=== PATIENT | male | born 1970 | race African-American/Black ===

== ENCOUNTER 2017-04-20 08:28 | Emergency (ER) | payer BC ==
[2017-04-20 06:39] LABS: BASOPHILS 0.2 %; BASOPHILS ABSOLUTE 0.01 10/3/uL (0.0-0.16); EOSINOPHILS 3.2 %; EOSINOPHILS ABSOLUTE 0.18 10/3/uL (0.0-0.53); HEMATOCRIT 44.5 % (40.0-51.0); HEMOGLOBIN 15.6 g/dL (13.6-17.8); IMMATURE GRANULOCYTES 0.5 %; IMMATURE GRANULOCYTES ABSOLUTE 0.03 10/3/uL (0.0-0.11); LYMPHOCYTES 31.8 %; MANUAL DIFF NO %; MEAN CORPUS HGB CONC 35.1 g/dL (32.0-36.0); MEAN CORPUSCULAR HEMOGLOB 33.3 pg (26.0-34.0); MEAN CORPUSCULAR VOLUME 94.9 fL (80-100); MEAN PLATELET VOLUME 10.2 fL (9.2-13.0); MONOCYTES 9.5 %; MONOCYTES ABSOLUTE 0.54 10/3/uL (0.21-1.20); NEUTROPHILS 54.8 %; PLATELET COUNT 272 10/3/uL (150-400); RED CELL COUNT 4.69 10/6/uL (4.7-6.1); WHITE BLOOD CELLS 5.7 10/3/uL (4.5-10.5)
[2017-04-20 06:50] LABS: CALCIUM, SERUM 8.4 MG/DL (8.5-10.4); CHLORIDE, SERUM 109 MMOL/L (96-112); CO2 (CARBON DIOXIDE) 27 MMOL/L (24-34); SODIUM, SERUM 140 MMOL/L (135-148)
[2017-04-20 06:52] LABS: BUN (BLOOD UREA NITROGEN) 17 MG/DL (6-23); CREATININE 1.78 MG/DL (0.70-1.30); GFR AFRICAN AMERICAN 51 ML/MIN (>=60); GFR NON AFRICAN AMERICAN 44 ML/MIN (>=60); GLUCOSE, SERUM 180 MG/DL (60-99); POTASSIUM, SERUM 4.3 MMOL/L (3.5-5.3)
[~2017-04-20 08:28] MED LIST: GGACUDL PO; VALARIAN ROOT PO; ZITHROMAX500 MG PO
[2017-04-20 09:01] LABS: WBC (NOT ORDERED) (RFLEX) 0 (0-5)
[2017-04-20 09:25] LABS: ASCORBIC ACID (UR NOT ORDER) NEG (NEG); BILIRUBIN, URINE NEGATIVE (NEG); ER URINALYSIS TAT 0 Hrs 28 Mins; KETONE, URINE NEGATIVE (NEG); LEUKOCYTE ESTERASE(NOT OR NEG (NEG); NITRITE (URINE) POS (NEG)
== END 2017-04-20 10:48 | disposition home or self-care (01) ==
LOC: ER 08:28
PROVIDERS: Nurse Practitioner
DX: N20.1 Calculus of ureter (principal); N17.9 Acute kidney failure, unspecified; Z79.2 Long term (current) use of antibiotics
CPT/HCPCS: 74000; 80048; 81001; 85025; 87086; 96374; 96375; 99285; J1170; J2405